=== PATIENT | female | born 2005 | race Caucasian/White ===

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

== ENCOUNTER 2023-12-26 12:06 | Outpatient (REF) | payer MEDICAID, SELFPAY ==
[2023-12-26 14:05] LABS: HCG Quantitative 15824 mIU/mL
[2023-12-27 02:30] LABS: CT PCR NOT DETECTED (Not Detect.); NG PCR NOT DETECTED (Not Detect.)
== END 2023-12-26 12:07 | disposition home or self-care (01) ==
LOC: HO.HHCL 12:06
PROVIDERS: Visit Provider Advanced Practice Midwife
DX: Z3A.01 Less than 8 weeks gestation of pregnancy (principal); Z11.3 Encounter for screening for infections with a predominantly sexual mode of transmission
CPT/HCPCS: 36415; 84702; 87491; 87591

== ENCOUNTER 2025-05-07 17:28 | Outpatient (REF) | payer MEDICAID, SELFPAY ==
[2025-05-07 17:58] LABS: Appearance Urine Turbid; Glucose Urine UA Negative (Negative); PH 6.0 (5.0-9.0); Specific Gravity - Urine 1.025 (1.005-1.025); UMIC TRIGGER UACC YES
[2025-05-07 18:01] LABS: UACC Culture Trigger YES
[2025-05-08 01:29] LABS: Bacterial Vaginosis PCR POSITIVE (Negative); Candida Group PCR DETECTED (Not Detect); Candida glab krusei PCR NOT DETECTED (Not Detect); Trichomonas vaginalis PCR NOT DETECTED (Not Detect)
[2025-05-08 02:00] LABS: CT PCR DETECTED (Not Detect.); NG PCR NOT DETECTED (Not Detect.)
== END 2025-05-07 17:29 | disposition home or self-care (01) ==
LOC: HO.LNP 17:28
PROVIDERS: Visit Provider Internal Medicine Geriatric Medicine
DX: N76.0 Acute vaginitis (principal); R10.24 Suprapubic pain; R30.0 Dysuria; Z20.2 Contact with and (suspected) exposure to infections with a predominantly sexual mode of transmission
CPT/HCPCS: 81001; 81515; 87086; 87491; 87591